=== PATIENT | female | born 1970 | race Hispanic/Latino ===

== ENCOUNTER 2023-11-14 18:14 | Emergency (ER) | payer SELFPAY ==
--- NOTE | ~2023-11-14 | XR_ITS ---
EXAM: XR knee RT min 4V DATE: 11/14/2023 18:57 HISTORY: PAIN LATERAL SIDE OF KNEE . COMPARISON: None available. FINDINGS: Normal mineralization. No fracture or dislocation. No lytic or blastic lesion. Tricompartm ental osteoarthritis, moderate in the medial compartment. No erosion or periosteal change. Soft tissu es within normal limits. Large volume joint fluid IMPRESSION: No acute osseous finding in the right knee. Large knee joint effusion. Reviewed, dictated and finalized at location K. IMPRESSION: No acute osseous finding in the right knee. Large knee joint effusi on.
[2023-11-14 18:23] VITALS: BP 167/75; PULSE 87; RESP 14; TEMP 36.6; O2SAT 99
--- NOTE | 2023-11-14 18:41 | ED.GENADULT ---
HPI - General Adult General Chief complaint: Extremity Injury, Lower <Norma Olivas, CENTRIFUGAL OPERATOR - Last Filed: 11/14/23 18:43> Stated complaint: R knee pain after fall a while ago <Norma Mcbride November CENTRIFUGAL OPERATOR - Last Filed: 11/14/23 18:43> Time Seen by Provider: 11/14/23 18:41 <Norma Mcbride November, CENTRIFUGAL OPERATOR - Last Filed: 11/14/23 18:43> Focused HPI: Magy Lynch is a 52 y/o female who presents today with complaints of right knee pain/ swelling that started 5 days ago. She states that she fell on her right knee about 4 months ago and ever since she keeps getting these swelling/painful flairs GENERAL: Well-appearing, well-nourished, and in no acute distress. HEAD: Normocephalic, atraumatic. CHEST: Clear to auscultation. ?No respiratory distress. HEART: Regular rate and rhythm.? NEURO: ?Alert and oriented x3. Patient screened in triage and initial orders placed.? ?Additional care and disposition to be based upon?diagnostic testing and treatment. <Norma Mcbride November, CENTRIFUGAL OPERATOR - Last Filed: 11/14/23 18:43> History of Present Illness HPI narrative: Agree with HPI. No recent injury, just bending/walking while at work the other day. No fever/redness. <Davidson Marquez MD - Last Filed: 11/14/23 21:23> Related Data Allergies/adverse reactions: Allergies Allergy/AdvReac Type Severity Reaction Status Date / Time No Known Allergies Allergy Verified 11/14/23 18:15 <Norma Mcbride November, CENTRIFUGAL OPERATOR - Last Filed: 11/14/23 18:43> Review of Systems Constitutional: Constitutional: Reports no additional constitutional complaints <Davidson Marquez MD - Last Filed: 11/14/23 21:23> Cardiovascular: Cardiovascular: Reports no additional cardiovascular complaints <Davidson Marquez MD - Last Filed: 11/14/23 21:23> Respiratory: Respiratory: Reports no additional respiratory complaints <Davidson Marquez MD - Last Filed: 11/14/23 21:23> Musculoskeletal: Musculoskeletal: Denies back pain, Reports arthralgias, Reports joint swelling and Denies muscle cramps <Davidson Marquez MD - Last Filed: 11/14/23 21:23> Neurologic: Reports system reviewed and no additional complaints, except as documented <Davidson Marquez MD - Last Filed: 11/14/23 21:23> PMFSH Past Medical History Medical History: Medical History (Updated 11/14/23 @ 21:22 by Davidson Marquez MD) Healthy female adult <Norma Olivas APRN - Last Filed: 11/14/23 18:43> Surgical History Surgical History: Surgical History (Updated 11/14/23 @ 21:21 by Davidson Marquez MD) History of hysterectomy <Norma Olivas APRN - Last Filed: 11/14/23 18:43> Exam Narrative: GENERAL: Well-appearing, well-nourished, and in no acute distress. HEAD: Normocephalic, atraumatic. ENT: Mucous membranes moist. CHEST: Clear to auscultation. No respiratory distress. HEART: Regular rate and rhythm. Normal peripheral pulses. EXTREMITIES: Normal range of motion. No edema. Right knee effusion noted, no warmth/redness. SKIN: Warm, dry, no rash. NEURO: Alert and oriented x3. PSYCH: Normal mood and affect. <Davidson Marquez MD - Last Filed: 11/14/23 21:23> Course Course Emergency Course: Discussed conservative tx and need for f/u. <Davidson Marquez MD - Last Filed: 11/14/23 21:23> Vital Signs Vital signs: Vital Signs Temperature 97.8 F 11/14/23 18:23 Pulse Rate 87 11/14/23 18:23 Respiratory Rate 14 11/14/23 18:23 Blood Pressure 167/75 H 11/14/23 18:23 Pulse Oximetry 99 11/14/23 18:23 Oxygen Delivery Room Air 11/14/23 18:23 Temperature 97.8 F 11/14/23 18:23 Pulse Rate 87 11/14/23 18:23 Respiratory Rate 14 11/14/23 18:23 Blood Pressure 167/75 H 11/14/23 18:23 Pulse Oximetry 99 11/14/23 18:23 Oxygen Delivery Room Air 11/14/23 18:23 <Norma J. May, CENTRIFUGAL OPERATOR - Last Filed: 11/14/23 18:43> Vital Signs Temperature 97.8 F 11/14/23 18:23 Pulse Rate 87 11/14/23 18:23 Respiratory Rate 14 11/14/23 18:
[2023-11-14] MEDS: NAPROXEN 500 MG TABLET PO (20:59)
[2023-11-14] MEDS: HYDROcodone/acetaminophen (*CRX) 5-325 MG TABLET 1 TAB PO (20:59)
[2023-11-14 21:38] VITALS: BP 168/72; PULSE 87; RESP 16; TEMP 36.7; O2SAT 99
== END 2023-11-14 21:39 | disposition home or self-care (01) ==
PROVIDERS: Emergency Provider Emergency Medicine; PCP Physician Assistant
DX: M17.11 Unilateral primary osteoarthritis, right knee (principal); M25.461 Effusion, right knee; Z90.710 Acquired absence of both cervix and uterus
CPT/HCPCS: 73564; 99283; A9270